=== PATIENT | female | born 1955 | race Caucasian/White ===

== ENCOUNTER 2016-05-27 14:00 | Emergency (ER) | payer OTHER ==
[~2016-05-27] VITALS: Ht 160 cm; Wt 74.0 kg
[~2016-05-27 14:00] MED LIST: ALPRAZOLAM PO; ASPI-664 PO; ASPI81TA3 PO; ATOR40TA68 PO; ATORVASTATIN PO; BENA40TA41 PO; BENA40TA54 PO; CITALOPRAM PO; D-ME473S18 PO; DOCU-216 PO; DOCUSATE PO; HYD25 PO; HYDR-3498 PO; HYDROCHLOROTHIAZIDE PO; IBUP-1542 PO; METO-448 PO; METOPROLOL PO; OMEP20CA9 PO; OMEPRAZOLE PO; OSLT75C PO
[2016-05-27 14:23] VITALS: Ht 160 cm; Wt 74.0 kg
[2016-05-27] MEDS ORDERED: ASPIRIN 325 MG TAB PO STA (16:02)
--- NOTE | 2016-05-27 16:02 | ERD ---
ER Documentation Chief Complaint Date/Time DATE: 05/27/16 TIME: 16:02 Chief Complaint CHEST PAIN,RIGHT LEG PAIN,BACK PAIN,NECK PAIN HPI 60-year-old female with a history of hypertension, hyperlipidemia, anxiety, GERD and depression ambulatory to the ED complaining of a one-week history of unprovoked, vague, achy, mild to moderate left upper chest/shoulder pain. Denies shortness of breath, nausea, vomiting or diaphoresis. No URI symptoms or cough. No abdominal pain. She also has intermittent, burning pain to both legs and feet along with pain to the mild, muscles of her back and neck. No dysuria, polyuria, incontinence or flank pain. Denies headache or visual changes. No focal weakness or numbness. No relieving or exacerbating factors. No fevers or chills ROS All systems reviewed and are negative except as per history of present illness. Medications Home Meds Active Scripts Tramadol HCl (Tramadol HCl) 50 Mg Tablet, 50 MG PO Q6, #12 TAB Prov:DONA LOPEZ MD 05/27/16 Dextromethorphan Hb-Promethazine Hcl (Promethazine DM Syrup) 473 Ml Syrup, 10 ML PO Q6H Y for COUGH, #4 OZ Prov:PAULY DENNIS 02/10/16 Ibuprofen* (Motrin*) 600 Mg Tab, 600 MG PO Q6, #30 TAB Prov:PAULY DENNIS 02/10/16 Oseltamivir Phosphate* (Tamiflu*) 75 Mg Capsule, 75 MG PO BID for 5 Days, CAP Prov:PAULY DENNIS 02/10/16 Hydrocodone Bit-Acetaminophen* (Frohna*) 5-325 Mg Tab, 1 TAB PO Q6 Y for PAIN, # 14 TAB Prov:TL DOMÍNGUEZ MD 12/12/14 Ibuprofen* (Motrin*) 600 Mg Tab, 600 MG PO Q6, #20 TAB Prov:TL DOMÍNGUEZ MD 12/12/14 Reported Medications Benazepril Hcl* (Benazepril Hcl*) 40 Mg Tablet, 40 MG PO DAILY, TAB 02/08/14 [Omeprazole] No Conflict Check, 20 MG PO 10/13/13 [Metoprolol] No Conflict Check, 25 MG PO 10/13/13 [Hydrochlorothiazide] No Conflict Check, 25 MG PO 10/13/13 [Docusate] No Conflict Check, 100 MG PO 10/13/13 [Citalopram] No Conflict Check, 40 MG PO 10/13/13 [Atorvastatin] No Conflict Check, 40 MG PO 10/13/13 Aspirin* (Aspirin* EC) 81 Mg Tablet.dr, 81 MG PO DAILY, TAB 10/13/13 [Alprazolam] No Conflict Check, 0.25 MG PO 10/13/13 Atorvastatin* (Atorvastatin*) 40 Mg Tablet, PO HS 09/10/12 Omeprazole* (Prilosec*) 20 Mg Capsule.dr, PO DAILY 09/10/12 Docusate Sodium (Dok) 100 Mg Capsule, PO HS 09/10/12 Ibuprofen* (Ibuprofen*) 600 Mg Tablet, PO Q6 09/10/12 Hydrochlorothiazide* (Hydrochlorothiazide*) 25 Mg Tab, PO DAILY 09/10/12 Aspirin (Aspirin) 81 Mg Chew, PO DAILY 09/10/12 Benazepril Hcl* (Lotensin*) 40 Mg Tablet, PO DAILY 09/10/12 Metoprolol Tartrate* (Lopressor*) 25 Mg Tab, PO BID 09/10/12 Allergies Allergies: Coded Allergies: No Known Allergy (Unverified , 02/08/14) PMhx/Soc Reviewed in chart. As per HPI. History of Surgery: Yes (appendectomy) Anesthesia Reaction: No Hx Neurological Disorder: No Hx Respiratory Disorders: No Hx Cardiac Disorders: Yes (HTN, HYPERLIPIDEMIA) Hx Psychiatric Problems: Yes (DEPRESSION) Hx Miscellaneous Medical Probl: No Hx Alcohol Use: No Hx Substance Use: No Hx Tobacco Use: No FmHx Unknown as her parents when she was a child Physical Exam Vitals Vital Signs Date Time Temp Pulse Resp B/P Pulse Ox O2 Delivery O2 Flow Rate FiO2 05/27/16 18:20 98.1 56 14 146/65 99 Room Air 05/27/16 14:23 98.1 73 18 139/68 98 Physical Exam Const: Alert, no acute distress. Head: Atraumatic Eyes: Normal Conjunctiva ENT: Normal External Ears, Nose and Mouth. Neck: Full range of motion. Nontender. No meningismus. Resp: Sounds are equal and clear to auscultation bilaterally. No rales rhonchi or wheezes. Cardio: Regular rate and rhythm, no murmurs. Chest Wall: Mild, reproducible tenderness. No rash. No deformity Abd: Soft, obese, non tender, non distended. Normal bowel sounds Skin: No petechiae or rashes Back: No midline or flank tenderness Ext: No cyanosis, or edema. Mild bilateral lower leg tenderness but no calf swelling or redness. Pulses 4+ in all extremities. Neur: Awake and alert. Cranial nerves II through XII are grossly intact. Motor and sensory equal bilaterally. No focal deficit observed. Psych: Normal Mood and Affect. Patient does not appear anxious or depressed. Result Diagram: 05/27/16 1600 05/27/16 1600 Results 24 hrs Laboratory Tests Test 05/27/16 16:00 Activated Partial Thromboplast Time 28.6Sec Alanine Aminotransferase (ALT/SGPT) 41IU/L Albumin 4.7g/dl Albumin/Globulin Ratio 1.38 Alkaline Phosphatase 115IU/L Anion Gap 18 Aspartate Amino Transf (AST/SGOT) 31IU/L Basophils # 0.110^3/ul Basophils % 0.6% Blood Morphology Comment Blood Urea Nitrogen 11mg/dl Calcium Level 9.9mg/dl Carbon Dioxide Level 31mmol/L Chloride Level 99mmol/L Creatinine 0.71mg/dl D-Dimer < 220.00ng/ml D-Dimer Comment Direct Bilirubin 0.00mg/dl Eosinophils # 0.410^3/ul Eosinophils % 4.5% Globulin 3.40g/dl Glucose Level 99mg/dl Hematocrit 40.0% Hemoglobin 13.3g/dl INR International Normalized Ratio 0.96 Indirect Bilirubin 0.3mg/dl Lymphocytes # 3.510^3/ul Lymphocytes % 37.1% Mean Corpuscular Hemoglobin 26.8pg Mean Corpuscular Hemoglobin Concent 33.3g/dl Mean Corpuscular Volume 80.4fl Mean Platelet Volume 8.4fl Monocytes # 0.610^3/ul Monocytes % 6.4% Neutrophils # 4.910^3/ul Neutrophils % 51.4% Nucleated Red Blood Cells # 0.010^3/ul Nucleated Red Blood Cells % 0.0/100WBC Platelet Count 68620^3/UL Potassium Level 4.1mmol/L Prothrombin Time 12.8Sec Prothrombin Time Ratio 1.0 Red Blood Count 4.9710^6/ul Red Cell Distribution Width 13.5% Sodium Level 144mmol/L Total Bilirubin 0.3mg/dl Total Protein 8.1g/dl Troponin I < 0.012ng/ml White Blood Count 9.510^3/ul Current Medications Medications (Trade) Dose Ordered Sig/Juana Route PRN Reason Start Time Stop Time Status Last Admin Dose Admin Aspirin (Aspirin) 325 mg ONCE STAT PO 05/27/16 16:02 05/27/16 16:04 DC 05/27/16 16:10 Ketorolac Tromethamine (Toradol) 15 mg ONCE STAT IV 05/27/16 16:04 05/27/16 16:06 DC 05/27/16 16:11 EKG: TIME: 14: 11. Sinus rhythm. Normal [place] and QRS. No acute ST-T wave changes. No axis deviation or ectopy. EP Interpretation: Low voltage QRS otherwise normal ECG. IMAGING: PROCEDURE: US bilateral lower extremity veins. CLINICAL INDICATION: Bilateral leg pain and swelling. Chest pain and shortness of breath. TECHNIQUE: Multiple longitudinal and transverse images of the bilateral lower extremity veins were obtained with ross scale and color Doppler imaging. The common femoral vein, femoral vein, and popliteal vein were evaluated. 2D grayscale measurements with compression sonography, color Doppler, and pulsed Doppler with augmentation. COMPARISON: No prior studies are available for comparison. FINDINGS: The bilateral common femoral, femoral and popliteal veins are normally compressible throughout. Color flow demonstrates normal filling of the vessels. Normal waveforms are visualized and there is normal response to augmentation. IMPRESSION: 1. No evidence of deep vein thrombosis involving either lower extremity. RPTAT: QQ .Tl Mcmahon MD, MD Date Time Electronically viewed and signed by .Tl Mcmahon MD, MD on 05/27/2016 17:04 .R/ PROCEDURE: Chest Radiograph. CLINICAL INDICATION: Chest pain TECHNIQUE: Single frontal chest radiograph. COMPARISON: Chest radiograph 02/10/2016. FINDINGS: Heart size is within normal limits. Atherosclerotic calcifications are present. No infiltrate or effusion is seen. The bones are intact. IMPRESSION: 1. No evidence of acute cardiopulmonary disease. 2. Atherosclerotic vascular disease. RPTAT: KK .Narendra Shaikh MD, MD Date Time Electronically viewed and signed by .Narendra Shaikh MD, MD on 2016 16:28 .B/ Procedures/MDM DOCUMENTS REVIEWED: ED nurse, no prior records available REEXAMINATION/REEVALUATION: Time:18:00. No pain or SOB. MEDICAL DECISION MAKIN-year-old female with a history of hypertension, hyperlipidemia, anxiety, GERD and depression ambulatory to the ED complaining of a one-week history of unprovoked, vague, achy, mild to moderate left upper chest/shoulder pain as well as bilateral leg, neck or back pain. No ischemic EKG changes or elevated troponin. No radiographic evidence of pneumonia or pneumothorax. Venous Dopplers of lower extremities are negative for DVT and d- dimer is negative. Pulmonary embolism and aortic dissection are unlikely. Etiology of her pain is likely musculoskeletal although she will require further risk stratification. Counseled [patient and family] regarding diagnostic workup, diagnosis and need for followup. Understands to return to ED if symptoms recur, worsen or any other concerns. Departure Diagnosis: Primary Impression: Chest pain of uncertain etiology Additional Impression: Hypertension Hypertension type: essential hypertension Qualified Code: I10 - Essential hypertension Condition: Stable Patient Instructions: Chest Pain, Uncertain Cause, High Blood Pressure ( Hypertension) DONA LOPEZ MD May 27, 2016 16:02
[2016-05-27] MEDS ORDERED: KETOROLAC 15 MG INJ IV STA (16:04)
[2016-05-27 16:20] LABS: BASOPHIL # 0.1 10^3/ul (0.0-0.1); BASOPHILS % 0.6 % (0.0-2.0); EOSINOPHILS # 0.4 10^3/ul (0.0-0.5); EOSINOPHILS % 4.5 % (0.0-7.0); HEMOGLOBIN 13.3 g/dl (12.0-16.0); LYMPHOCYTES # 3.5 10^3/ul (0.8-2.9); LYMPHOCYTES % 37.1 % (15.0-51.0); MEAN CORPUSCULAR HEMOGLOBIN 26.8 pg (29.0-33.0); MEAN CORPUSCULAR HGB CONC 33.3 g/dl (32.0-37.0); MEAN CORPUSCULAR VOLUME 80.4 fl (82.0-101.0); MEAN PLATELET VOLUME 8.4 fl (7.4-10.4); MONOCYTE # 0.6 10^3/ul (0.3-0.9); MONOCYTES % 6.4 % (0.0-11.0); NEUTROPHIL # 4.9 10^3/ul (1.6-7.5); NEUTROPHILS % 51.4 % (39.0-77.0); PLATELET COUNT 333 10^3/UL (140-440); RED BLOOD COUNT 4.97 10^6/ul (4.20-5.40); RED CELL DISTRIBUTION WIDTH 13.5 % (11.5-14.5); UNCORRECTED WBC 9.5 10^3/ul (4.8-10.8); WHITE BLOOD COUNT 9.5 10^3/ul (4.8-10.8)
[2016-05-27 16:29] LABS: CONDITION 1; LH ANALYZER COMMENTS 1
--- NOTE | 2016-05-27 16:29 | RADRPT ---
PROCEDURE: Chest Radiograph. CLINICAL INDICATION: Chest pain TECHNIQUE: Single frontal chest radiograph. COMPARISON: Chest radiograph 02/10/2016. FINDINGS: Heart size is within normal limits. Atherosclerotic calcifications are present. No infiltrate or effusion is seen. The bones are intact. IMPRESSION: 1. No evidence of acute cardiopulmonary disease. 2. Atherosclerotic vascular disease. RPTAT: KK .Narendra Shaikh MD, MD Date Time Electronically viewed and signed by .Narendra Shaikh MD, MD on 05/27/2016 16:28 .B/
[2016-05-27 16:30] LABS: ALBUMIN 4.7 g/dl (3.3-4.9); CHLORIDE 99 mmol/L (97-110); POTASSIUM 4.1 mmol/L (3.5-5.1); SODIUM 144 mmol/L (135-144)
[2016-05-27 16:32] LABS: CREATININE 0.71 mg/dl (0.44-1.00)
[2016-05-27 16:33] LABS: ALANINE AMINOTRANSFERASE 41 IU/L (13-69); ALBUMIN/GLOBULIN RATIO 1.38; ALKALINE PHOSPHATASE 115 IU/L (42-121); ANION GAP 18 (8-16); ASPARTATE AMINO TRANSFERASE 31 IU/L (15-46); BILIRUBIN,INDIRECT 0.3 mg/dl (0-1.1); BILIRUBIN,TOTAL 0.3 mg/dl (0.2-1.3); BLOOD UREA NITROGEN 11 mg/dl (7-20); CARBON DIOXIDE 31 mmol/L (21-31); GLUCOSE 99 mg/dl (70-220); TOTAL PROTEIN 8.1 g/dl (6.1-8.1)
[2016-05-27 16:34] LABS: CALCIUM 9.9 mg/dl (8.4-10.2); INR 0.96; PROTIME 12.8 Sec (12.2-14.2)
[2016-05-27 16:35] LABS: PARTIAL THROMBOPLASTIN TIME 28.6 Sec (25.0-35.0)
[2016-05-27 16:46] LABS: D-DIMER < 220.00 ng/ml (<460)
[2016-05-27 16:47] LABS: TROPONIN-I < 0.012 ng/ml (0.00-0.12)
--- NOTE | 2016-05-27 17:04 | RADRPT ---
PROCEDURE: US bilateral lower extremity veins. CLINICAL INDICATION: Bilateral leg pain and swelling. Chest pain and shortness of breath. TECHNIQUE: Multiple longitudinal and transverse images of the bilateral lower extremity veins were obtained with ross scale and color Doppler imaging. The common femoral vein, femoral vein, and popl iteal vein were evaluated. 2D grayscale measurements with compression sonography, color Doppler, and pulsed Doppler with augmentation. COMPARISON: No prior studies are available for comparison. FINDINGS: The bilateral common femoral, femoral and popliteal veins are normally compressible throughout. Col or flow demonstrates normal filling of the vessels. Normal waveforms are visualized and there is no rmal response to augmentation. IMPRESSION: 1. No evidence of deep vein thrombosis involving either lower extremity. RPTAT: QQ .Davis Mcmahon MD, Date Time Electronically viewed and signed by .Davis Mcmahon MD, on 05/27/2016 17:04 .R/
[2016-05-27] MEDS ORDERED: TRAM50TA2 PO (18:08)
[2016-05-27 18:20] VITALS: BP 146/65; PULSE 56; RESP 14; TEMP 98.1
== END 2016-05-27 18:23 | disposition home or self-care (01) ==
LOC: E/R 14:00
DX: R07.9 Chest pain, unspecified (principal); I10 Essential (primary) hypertension; Z79.82 Long term (current) use of aspirin
CPT/HCPCS: 71010; 80053; 84484; 85025; 85378; 85610; 85730; 93005; 93970; J1885; Z7610; 36415; 96374